=== PATIENT | female | born 1945 | race Two or more races ===

== ENCOUNTER 2019-03-29 06:29 | Day surgery (SDC) | payer OTHER ==
[~2019-03-29 06:29] MED LIST: ATORVASTATIN CA10 MG PO; METFORMIN HCL500 MG PO; RAMIPRIL2.5 MG PO; SYNTHROID50 MCG PO; ZETIA10 MG PO
[2019-03-29] MEDS ORDERED: NAPROXEN SODIU550 MG PO (11:54)
== END 2019-03-29 15:00 | disposition home or self-care (01) ==
LOC: CIR.AMB 06:29
DX: N84.0 Polyp of corpus uteri (principal); D25.9 Leiomyoma of uterus, unspecified

== ENCOUNTER 2024-01-22 14:18 | Outpatient (CLI) | payer OTHER ==
[~2024-01-22 14:18] MED LIST changes: +NAPROXEN SODIU550 MG PO
== END 2024-01-22 14:20 | disposition home or self-care (01) ==
LOC: SONOGRAMA 14:18
PROVIDERS: ATTEND Pathology Anatomic Pathology & Clinical Pathology
DX: D34 Benign neoplasm of thyroid gland (principal); E07.89 Other specified disorders of thyroid; E04.1 Nontoxic single thyroid nodule

== ENCOUNTER 2025-02-01 10:30 | Inpatient (IN) | payer OTHER ==
[~2025-02-01] VITALS: Ht 154.9 cm; Wt 71.7 kg
[2025-02-01 11:43] VITALS: BP 110/69
[2025-02-01 11:45] VITALS: BP 122/80
[2025-02-01] MEDS ORDERED: JANUMET 50-5001 EACH PO (11:48)
[2025-02-01] MEDS ORDERED: ASA81 MG PO (11:49)
[2025-02-01] MEDS ORDERED: HORIZANT300 MG PO (11:49)
[2025-02-01] MEDS ORDERED: PROTONIX20 MG PO (11:49)
[2025-02-01 11:59] LABS: RH POSITIVE
[2025-02-07] MEDS ORDERED: CEFAZOLIN SODIUM 1,000 MG VIAL IV ONE (10:00)
[2025-02-07] MEDS ORDERED: POVIDONE-IODINE 118 ML BOTT TOP ONE (10:00)
[2025-02-07] MEDS ORDERED: INSULIN LISPRO 1,000 UNIT/10 ML UNITS SUBCUTANEO PRN ×2 (11:15→14:45)
[2025-02-07] MEDS ORDERED: ONDANSETRON HCL 2 MG/ML VIAL IV PRN (11:15)
[2025-02-07] MEDS ORDERED: DEXTROSE 50 % IN WATER 0.5 G/ML DISP.SYRIN IV PRN ×2 (11:15→14:45)
[2025-02-07] MEDS ORDERED: RINGERS SOLUTION,LACTATED 1,000 ML IV SCH (11:15)
[2025-02-07] MEDS ORDERED: MORPHINE SULFATE 4 MG,MORPHINE SULFATE 2 MG IV PRN (11:15)
[2025-02-07] MEDS ORDERED: CEFAZOLIN SODIUM 1,000 MG VIAL IV SCH (12:00)
[2025-02-07 13:50] VITALS: BP 110/69
[2025-02-07 15:44] VITALS: BP 102/60
[2025-02-07 16:23] LABS: HEMATOCRIT 38.2 % (36.0-45.00); HEMOGLOBIN 12.8 g/dL (12.0-15.00); MEAN CELL VOLUME 96.9 fL (80.00-100.00); MEAN CORPUSCULAR HEMOGLOBIN 32.4 pg (27.00-32.0); MEAN CORPUSCULAR HGB CONC 33.4 g/dl (32.0-36.0); PLATELET COUNT 180 K/uL (150-450); RED BLOOD COUNT 3.94 M/uL (4.00-6.00); RED CELL DISTRIBUTION WIDTH 13.9 % (11.5-14.5)
[2025-02-07 20:43] VITALS: BP 90/59
[2025-02-07] MEDS ORDERED: FAMOtidine 20 MG TABLET PO SCH (21:00)
[2025-02-08 01:34] VITALS: BP 93/60
[2025-02-08] MEDS ORDERED: LEVOTHYROXINE SODIUM 50 MCG TABLET PO SCH (06:00)
[2025-02-08] MEDS ORDERED: IBU800 MG PO (06:55)
[2025-02-08] MEDS ORDERED: NEURONTIN300 MG PO (06:55)
[2025-02-08] MEDS ORDERED: SURFAK240 M1 PO (06:56)
[2025-02-08 08:46] VITALS: BP 95/60
[2025-02-08] MEDS ORDERED: ENOXAPARIN SODIUM 40 MG/0.4 ML SYRINGE SUBCUTANEO SCH (09:00)
[2025-02-08] MEDS ORDERED: RAMIPRIL 2.5 MG CAPSULE PO SCH (09:00)
== END 2025-02-08 09:35 | disposition home or self-care (01) | DRG 743 ==
LOC: OB/GYN 02-07 05:50 → O/R 02-07 05:50 → SURH 02-07 10:30 → OB/GYN 02-07 12:04 → SURH 02-07 13:30 → OB/GYN 02-08 09:35
PROVIDERS: ADMIT Obstetrics & Gynecology Gynecology; ATTEND Obstetrics & Gynecology Gynecology
PROC: 0USG7ZZ Reposition Vagina, Via Natural or Artificial Opening (ICD-10-PCS; 2025-02-07)
PROC: 0UT97ZZ Resection of Uterus, Via Natural or Artificial Opening (ICD-10-PCS; principal; 2025-02-07 13:30)
DX: D25.9 Leiomyoma of uterus, unspecified (principal); N80.03 Adenomyosis of the uterus; N81.4 Uterovaginal prolapse, unspecified